=== PATIENT | female | born 1950 | race African-American/Black ===

== ENCOUNTER 2020-12-10 13:44 | Emergency (ER) | payer OTHER ==
[2020-12-10 14:06] VITALS: BMI 22.4
[2020-12-10] MEDS ORDERED: ACETAMINOPHEN 500 MG TABLET (FP) PO ONE (15:01)
[2020-12-11 01:44] VITALS: BP 189/103; PULSE 97; TEMP 98.1
== END 2020-12-11 04:30 ==
LOC: JER 13:44
DX: S09.90XA Unspecified injury of head, initial encounter (principal); M54.2 Cervicalgia
CPT/HCPCS: 70450-TC; 72125-TC; 99284-25